=== PATIENT | female | born 1980 | race African-American/Black ===

== ENCOUNTER 2023-08-20 13:56 | Emergency (ER) | payer MEDICAID ==
[~2023-08-20] VITALS: Ht 160 cm; Wt 54.0 kg
[2023-08-20 14:10] VITALS: O2SAT 100
[2023-08-20 17:28] VITALS: BP 95/61; PULSE 82; RESP 19; TEMP 98.5
== END 2023-08-20 17:30 | disposition home or self-care (01) ==
LOC: ER 14:10
DX: O9A.212 Injury, poisoning and certain other consequences of external causes complicating pregnancy, second trimester (principal); Z3A.26 26 weeks gestation of pregnancy
CPT/HCPCS: 76818; 76805; 99284; Z7610

== ENCOUNTER 2023-09-16 10:10 | Emergency (ER) | payer MEDICAID ==
[~2023-09-16] VITALS: Ht 160 cm; Wt 56.0 kg
[2023-09-16 10:19] VITALS: TEMP 98.5; O2SAT 100
[2023-09-16] MEDS ORDERED: MORPHINE SULFATE 4 MG/ML CPJ (NOT FOR IM USE) IV STA (12:40)
[2023-09-16] MEDS ORDERED: SODIUM CHLORIDE 0.9% 1,000 ML IV ONE (12:45)
[2023-09-16] MEDS ORDERED: CEFOXITIN SODIUM 1 G in DEXTROSE 5% WATER 50 ML IV ONE (12:45)
[2023-09-16] MEDS ORDERED: DEXAMETHASONE 4MG/ML 1ML VIAL IV ONE (13:00)
[2023-09-16] MEDS ORDERED: MORPHINE SULFATE 2 MG/ML CPJ (NOT FOR IM USE) IV ONE (16:00)
[2023-09-16] MEDS ORDERED: OXYC-662 MT ×2 (16:25→16:30)
[2023-09-16] MEDS ORDERED: AMOX1TAB16 MT (16:25)
[2023-09-16 17:30] VITALS: BP 102/54; PULSE 117; RESP 20
== END 2023-09-16 17:42 | disposition home or self-care (01) ==
LOC: ER 10:10
DX: O99.613 Diseases of the digestive system complicating pregnancy, third trimester (principal); K04.7 Periapical abscess without sinus; Z3A.28 28 weeks gestation of pregnancy
CPT/HCPCS: 96361; 96374; 96375; 96376; 99284; J0694; J1100; J2270 ×2; J7060; J7030; Z7610 ×4